=== PATIENT | male | born 1980 | race Hispanic/Latino ===

== ENCOUNTER 2022-05-12 13:01 | Emergency (ER) | payer BC, OTHER ==
[~2022-05-12] VITALS: Ht 165.1 cm; Wt 65.8 kg
[2022-05-12 13:02] VITALS: BP 120/75
[2022-05-12 14:06] LABS: APPEARANCE,URINE CLEAR (CLEAR); BILIRUBIN,URINE SMALL (NEGATIVE); COLOR,URINE YELLOW (YELLOW); GLUCOSE, URINE (UA) NEGATIVE (NEGATIVE); KETONES,URINE 5 mg/dL (NEGATIVE); LEUKOCYTE ESTERASE ,URINE NEGATIVE (NEGATIVE); NITRATE,URINE NEGATIVE (NEGATIVE); OCCULT BLOOD,URINE NEGATIVE (NEGATIVE); PROTEIN,URINE NEGATIVE (NEGATIVE)
[2022-05-12 14:23] LABS: BACTERIA,URINE Rare /HPF (None Seen); MUCUS,URINE Few LPF (None Seen); RBC,URINE 0-1 /HPF (0-1); SQUAMOUS EPITHELIAL CELL,UR Rare /HPF (0-2); WBC,URINE 0-1 /HPF (0-1)
[2022-05-12 15:14] LABS: RAPID PLASMA REAGIN NONREACTIVE (NONREACTIVE)
== END 2022-05-12 14:09 | disposition home or self-care (01) ==
LOC: EDH 13:01
DX: Z11.3 Encounter for screening for infections with a predominantly sexual mode of transmission (principal)
CPT/HCPCS: 36415; 81001; 86592; 86701; 87390; 87486; 87797

== ENCOUNTER 2024-08-29 20:30 | Emergency (ER) | payer OTHER ==
[~2024-08-29] VITALS: Ht 165.1 cm; Wt 63.5 kg
[2024-08-29] MEDS ORDERED: IOHEXOL 350 MG/ML 100ML INFUS..BTL IV ONE (20:52)
[2024-08-29 21:02] LABS: PROTHROMBIN TIME 10.8 SEC (9.6-11.6)
[2024-08-29 21:04] LABS: BASOPHILS # (AUTO) 0.06 K/uL (0.00-0.20); BASOPHILS % (AUTO) 0.5 % (0.0-5.0); CREATININE 0.9 mg/dL (0.5-1.3); EOSINOPHILS # (AUTO) 0.19 K/uL (0.00-0.70); EOSINOPHILS % (AUTO) 1.5 % (0.0-8.0); HEMATOCRIT 41.7 % (42-54); IMMATURE GRANULOCYTE ABSOLUTE 0.05 K/uL (0-1); LYMPHOCYTES # (AUTO) 3.2 K/uL (1.0-4.8); LYMPHOCYTES % (AUTO) 24.6 % (21.0-51.0); MEAN CORPUSCULAR HEMOGLOBIN 30.9 pg (27.0-33.0); MEAN CORPUSCULAR HGB CONC 33.8 g/dL (32.0-36.0); MEAN CORPUSCULAR VOLUME 91.2 fL (79-99); MONOCYTES # (AUTO) 0.8 K/uL (0.1-1.0); MONOCYTES % (AUTO) 6.3 % (3.0-13.0); NEUTROPHILS # (AUTO) 8.6 K/uL (1.8-7.7); NEUTROPHILS % (AUTO) 66.7 % (40.0-77.0); PARTIAL THROMBOPLASTIN TIME 23.6 SEC (26.3-35.5); PLATELET COUNT (AUTO) 324 K/uL (130-400); POTASSIUM 4.2 mmol/L (3.5-5.1); RED BLOOD CELL COUNT(AUTO) 4.57 MIL/uL (4.50-6.20); RED CELL DISTRIBUTION WIDTH 13.2 % (11.0-15.5); WHITE BLOOD COUNT (AUTO) 12.8 K/uL (4.8-10.8)
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
[2024-08-29 21:14] LABS: MAGNESIUM 1.8 mg/dL (1.80-2.40)
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
[2024-08-29 21:29] LABS: B-TYPE NATRIURETIC PEPTIDE 9 pg/mL (0-100)
--- NOTE | 2024-08-29 21:55 | HMCIMG ---
RIGHT SHOULDER RADIOGRAPHS - 2-3 VIEWS INDICATION: Pain COMPARISON: None FINDINGS: No fracture or dislocation identified. Acromioclavicular and glenohumeral alignments are well maintained. Visible portions of the right clavicle are intact. IMPRESSION: No evidence for fracture or dislocation.
--- NOTE | 2024-08-29 21:56 | HMCIMG ---
RIGHT CLAVICLE RADIOGRAPHS - 3 VIEWS INDICATION: Pain COMPARISON: None FINDINGS: No acute fracture or subluxation identified. Acromioclavicular and sternoclavicular joints are well maintained, without widening or subluxation. IMPRESSION: No evidence for fracture or subluxation.
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
--- NOTE | 2024-08-29 21:58 | NUR ---
PATIENT DENIES ANY MEDICAL HISTORY, DENIES ANY PRESCRIBED DAILY MEDICATIONS
[2024-08-29 22:12] LABS: APPEARANCE,URINE CLEAR (CLEAR); BILIRUBIN,URINE NEGATIVE (NEGATIVE); COLOR,URINE LIGHT-YELLOW (YELLOW); GLUCOSE, URINE (UA) NEGATIVE (NEGATIVE); KETONES,URINE NEGATIVE (NEGATIVE); LEUKOCYTE ESTERASE ,URINE NEGATIVE Leu/uL (NEGATIVE); NITRATE,URINE NEGATIVE (NEGATIVE); OCCULT BLOOD,URINE NEGATIVE (NEGATIVE); PH,URINE 7.5 (5.0-8.0); PROTEIN,URINE NEGATIVE (NEGATIVE); UROBILINOGEN,URINE 0.2 mg/dL (0.2-1.0)
[2024-08-29 22:14] LABS: ADD UA MICROSCOPIC YES
[2024-08-29 22:16] LABS: BACTERIA,URINE RARE /HPF (None Seen); YEAST,URINE BUDDING FEW /HPF (None Seen)
[2024-08-29] MEDS: acetaMINOPHEN 500 MG TABLET PO ONE (22:26)
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
[2024-08-29] MEDS ORDERED: ACET-66 PO (23:46)
[2024-08-30] VITALS: BP 119/86; PULSE 76; RESP 18; TEMP 97.8; O2SAT 100
--- NOTE | 2024-08-30 01:37 | EKG ---
[facility] [place] [place] Test Date: 2024-08-29 Test Time: 21:19:15 Pat Name: MELANY FONTANEZ Department: [facility] Patient ID: [facility]-[id number] Room: Gender: M Edge Stitcher: [id number] : 1980 Requested By: DON EDOUARD Order Number: [id number] Reading MD: Jeimy Parks Measurements Intervals [place] Rate: 63 P: 47 KS: 134 QRS: 11 QRSD: 85 T: 36 QT: 392 QTc: 403 Interpretive Statements Sinus rhythm ST elev, probable normal early repol pattern No previous ECG available for comparison Electronically Signed On 08-30-2024 11:36:55 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
== END 2024-08-30 00:16 | disposition home or self-care (01) ==
LOC: EDH 20:30 → EDHIP 21:29 → UNDOADMIN 21:29 → EDH 08-30 00:16
DX: S06.0XAA Concussion with loss of consciousness status unknown, initial encounter (principal); R51.9 Headache, unspecified; R10.9 Unspecified abdominal pain; Z98.890 Other specified postprocedural states; V89.2XXA Person injured in unspecified motor-vehicle accident, traffic, initial encounter; Y93.89 Activity, other specified; Y92.89 Other specified places as the place of occurrence of the external cause; Y99.8 Other external cause status
CPT/HCPCS: 99285; 70450; 71045; 82550; 83735; 84484; 80048; 83880; 85025; 85610; 85730; 81001; 36415; 73000; 73030; 72125; 71270; 74178; 93005; Q9967